=== PATIENT | male | born 1935 | race Caucasian/White ===

== ENCOUNTER 2019-05-15 09:24 | Day surgery (SDC) | payer MEDICARE, OTHER ==
[~2019-05-15 09:24] MED LIST: BACL10TA PO; CYAN500T46 PO; LINA145C PO; TAMS0.4C2 PO
== END 2019-05-15 10:10 | disposition home or self-care (01) ==
LOC: GIL 09:24
PROVIDERS: ATTEND Internal Medicine Gastroenterology
DX: R10.9 Unspecified abdominal pain (principal); Z53.8 Procedure and treatment not carried out for other reasons

== ENCOUNTER 2019-07-11 17:42 | Emergency (ER) | payer MEDICARE, OTHER ==
[~2019-07-11] VITALS: Ht 152.4 cm; Wt 54.5 kg
[2019-07-11 17:47] VITALS: Ht 152.4 cm; Wt 54.5 kg
--- NOTE | 2019-07-11 22:03 | ERD ---
ER Documentation Chief Complaint Chief Complaint chronic SOB/"throat swelling", increased phlegm- worse today. no pain HPI 83-year-old male Lithuanian speaking presenting with complaints of phlegm that is getting stuck in his throat. He states that he has had problems with coughing up phlegm for the past 4 years. When I asked him what changed today, he states that nothing changed. However family states that he seemed a little more short of breath and anxious today. This is the reason for the visit. He is denying any chest pain, recent illness, change in color or consistency of phlegm. He states that in the past he has been diagnosed with chronic bronchitis which he believes he does not have. No fevers or chills. No hemoptysis. He is due to have an endoscopy in July. However he has seen many specialists who are unable to tell him why he is having the symptoms. ROS All systems reviewed and are negative except as per history of present illness. Medications Home Meds Active Scripts Baclofen* (Baclofen*) 10 Mg Tablet, 10 MG PO TID for burping for 14 Days, TAB Prov:ANNETTE ARTIS MD 12/14/18 Reported Medications Linaclotide (LINZESS) 145 Mcg Capsule, 145 MCG PO DAILY, #30 CAP 12/14/18 Tamsulosin Hcl* (Tamsulosin Hcl*) 0.4 Mg Cap.er.24h, 0.4 MG PO HS, CAP 12/14/18 Cyanocobalamin* (Vitamin B12*) 500 Mcg Tab, 500 MCG PO DAILY, TAB 12/14/18 Allergies Allergies: Coded Allergies: No Known Allergy (Unverified , 12/14/18) PMhx/Soc History of Surgery: No Anesthesia Reaction: No Hx Neurological Disorder: No Hx Respiratory Disorders: No Hx Cardiac Disorders: Yes (htn) Hx Psychiatric Problems: No Hx Miscellaneous Medical Probl: No Hx Alcohol Use: No Hx Substance Use: No Hx Tobacco Use: No Smoking Status: Never smoker FmHx Family History: No diabetes Physical Exam Vitals Vital Signs Date Temp Pulse Resp B/P (MAP) Pulse Ox O2 O2 Flow FiO2 Time Delivery Rate 07/11/19 98.4 68 18 167/70 98 Room Air 22:15 (102) 07/11/19 98.4 124 22 177/91 98 Room Air 20:50 (119) 07/11/19 98.8 63 18 179/70 97 Room Air 19:15 (106) 07/11/19 98.8 71 18 170/75 97 17:47 (106) Physical Exam Const: No acute distress, speaking in full sentences Head: Atraumatic Eyes: Normal Conjunctiva ENT: Normal External Ears, Nose and Mouth. Posterior oropharynx normal. No stridor or drooling. Normal phonation Neck: Full range of motion. No meningismus. No JVD Resp: Clear to auscultation bilaterally. No wheezing, rales, or rhonchi. No retractions. Cardio: Regular rate and rhythm, no murmurs Abd: Soft, non tender, non distended. Normal bowel sounds Skin: No petechiae or rashes Back: No midline or flank tenderness Ext: No cyanosis, or edema Neur: Awake and alert Psych: Normal Mood and Affect Result Diagram: 07/11/19203407/11/192034 Results 24 hrs Laboratory Tests Test 07/11/19 20:35 White Blood Count 7.1 10^3/ul Red Blood Count 4.50 10^6/ul Hemoglobin 13.9 g/dl Hematocrit 42.6 % Mean Corpuscular Volume 94.7 fl Mean Corpuscular Hemoglobin 30.9 pg Mean Corpuscular Hemoglobin Concent 32.6 g/dl Red Cell Distribution Width 13.5 % Platelet Count 170 10^3/UL Mean Platelet Volume 8.5 fl Immature Granulocytes % 0.100 % Neutrophils % 53.4 % Lymphocytes % 37.0 % Monocytes % 6.5 % Eosinophils % 2.4 % Basophils % 0.6 % Nucleated Red Blood Cells % 0.0 /100WBC Immature Granulocytes # 0.010 10^3/ul Neutrophils # 3.8 10^3/ul Lymphocytes # 2.6 10^3/ul Monocytes # 0.5 10^3/ul Eosinophils # 0.2 10^3/ul Basophils # 0.0 10^3/ul Nucleated Red Blood Cells # 0.0 10^3/ul Sodium Level 137 mmol/L Potassium Level 4.7 mmol/L Chloride Level 105 mmol/L Carbon Dioxide Level 26 mmol/L Anion Gap 6 Blood Urea Nitrogen 14 mg/dl Creatinine 0.93 mg/dl Est Glomerular Filtrat Rate mL/min mL/min Glucose Level 103 mg/dl Calcium Level 10.0 mg/dl Troponin I < 0.012 ng/ml Procedures/[facility] EMERGENT LABS AND DIAGNOSTIC STUDIES: Lab Results above were reviewed and interpreted by me. CBC: no anemia or evidence of infection BMP: no e/o clinically significant electrolyte abnormality severe acidosis, alkalosis, renal failure, diabetic ketoacidosis Troponin within normal limits, not indicative of cardiac ischemia 12-lead EKG was interpreted by Laron Armenta MD: Normal Sinus Rhythm with ventricular rate of 71 beats per minute Normal axis Normal intervals No acute ST or T wave changes suggestive of acute ischemia or STEMI. Radiology Results as interpreted by Radiology below were reviewed by Cairdad Armenta MD: Chest x-ray shows no acute abnormalities Initial Nursing notes reviewed. Previous Medical Records requested via the Electronic Health Record. EMERGENCY DEPARTMENT COURSE / MEDICAL DECISION MAKING: patient is presenting with complaints of choking on his phlegm. He is protecting his airway and is in no respiratory distress. Work-up shows no evidence of CHF, ACS, or any other serious etiology of his symptoms. Doubt infection. Doubt COPD exacerbation. Patient advised to follow-up for his endoscopy as scheduled and if his symptoms are not improving as expected, he may return to the ER or follow-up with his primary care doctor within the next few days. Patient's blood pressure was elevated (>120/80) but appears stable without evidence of hypertensive emergency or urgency. The patient was counseled about the risks of hypertension and urged to pursue outpatient monitoring and therapy within a week with their primary care physician. Departure Diagnosis: Primary Impression: Choking due to phlegm Encounter type: initial encounter Qualified Codes: T17.310A - Gastric contents in larynx causing asphyxiation, initial encounter Additional Impression: Shortness of breath Condition: Stable Patient Instructions: Dyspnea Additional Instructions: Call your primary care doctor TOMORROW for an appointment during the next 1-2 days.See the doctor sooner or return here if your condition worsens before your appointment time. RENAE ARMENTA MD Jul 11, 2019 22:03
[2019-07-11 22:15] VITALS: BP 167/70; PULSE 68; RESP 18
== END 2019-07-11 22:40 | disposition home or self-care (01) ==
LOC: E/R 17:42
DX: T17.310A Gastric contents in larynx causing asphyxiation, initial encounter (principal); I10 Essential (primary) hypertension; R40.2142 Coma scale, eyes open, spontaneous, at arrival to emergency department; R40.2362 Coma scale, best motor response, obeys commands, at arrival to emergency department; R40.2252 Coma scale, best verbal response, oriented, at arrival to emergency department; X58.XXXA Exposure to other specified factors, initial encounter; Y92.9 Unspecified place or not applicable
CPT/HCPCS: 36415; 71045; 80048; 84484; 85025; 93005

== ENCOUNTER 2019-08-20 10:08 | Day surgery (SDC) | payer MEDICARE, OTHER ==
[~2019-08-20] VITALS: Ht 162.6 cm; Wt 58.2 kg
[~2019-08-20 10:08] MED LIST changes: -CYAN500T46 PO; +CYAN500T55 PO; +DEXL60CA2 PO; +DOCU250C58 PO; +FENO145T37 PO; +FERR325T17 PO
[2019-08-20 11:06] VITALS: Ht 162.6 cm; Wt 58.2 kg
[2019-08-20 11:28] VITALS: BP 148/67; PULSE 65; RESP 18
[2019-08-20 12:42] VITALS: BP 182/78; RESP 23
== END 2019-08-20 14:11 | disposition home or self-care (01) ==
LOC: GIL 10:08
PROVIDERS: ATTEND Internal Medicine Gastroenterology
DX: D12.3 Benign neoplasm of transverse colon (principal); K64.8 Other hemorrhoids; D50.9 Iron deficiency anemia, unspecified; K57.30 Diverticulosis of large intestine without perforation or abscess without bleeding; K44.9 Diaphragmatic hernia without obstruction or gangrene; K21.9 Gastro-esophageal reflux disease without esophagitis; I10 Essential (primary) hypertension; I25.10 Atherosclerotic heart disease of native coronary artery without angina pectoris; I25.2 Old myocardial infarction; J44.9 Chronic obstructive pulmonary disease, unspecified; F17.200 Nicotine dependence, unspecified, uncomplicated
CPT/HCPCS: 88305